=== PATIENT | female | born 1990 | race Caucasian/White ===

== ENCOUNTER → 2016-11-25 15:41 | Outpatient (CLI) | payer MEDICAID ==
[2016-06-22 05:56] VITALS: BMI 27.8
[~2016-11-25 15:41] MED LIST: IBUPROFEN600 MG PO; MOTRIN600 MG PO; PERCOCET 5-3251 TAB PO; PERCOCET 5/3251 TA1 OR; PHENERGAN25 M1 PO; PRENATAL COMPLE1 TAB PO
== END | disposition home or self-care (01) ==
LOC: D.US 15:30
DX: J06.9 Acute upper respiratory infection, unspecified (principal)

== ENCOUNTER → 2017-07-21 10:50 | Outpatient (CLI) | payer MEDICAID ==
[2016-06-22 05:56] VITALS: BMI 27.8
== END | disposition home or self-care (01) ==
LOC: D.US 10:50
DX: M79.605 Pain in left leg (principal); M79.604 Pain in right leg; I83.891 Varicose veins of right lower extremity with other complications

== ENCOUNTER 2017-10-28 05:37 | Day surgery (SDC) | payer MEDICAID ==
[2017-10-27 14:37] LABS: HEMATOCRIT 44.3 % (36.0-48.0); MCH 30.9 pg (26.0-34.0); MCHC 33.9 g/dL (31.0-37.0); MCV 91.3 fL (80.0-100.0); MEAN PLATELET VOLUME 10.7 fL (7.4-10.4); RBC 4.85 10x6/uL (4.00-5.40); WBC 9.7 10x3/uL (4.8-10.8)
[2017-10-27 14:41] LABS: INR 1.02 (0.85-1.17)
[~2017-10-28] VITALS: Ht 170.2 cm; Wt 63.0 kg
--- NOTE | ~2017-10-28 | OP ---
PATIENT NAME: KAMARI TATE MEDICAL RECORD: [id number] :90 LOCATION:D.OPS ADMISSION DATE: SURGEON: DUONG ENRIQUEZ MD DATE OF OPERATION: 10/28/2017 PREOPERATIVE DIAGNOSES: 1. Pathologic greater saphenous venous reflux, bilaterally. 2. Pathologic lesser saphenous venous reflux, bilaterally . 3. Bilateral symptomatic varicose veins. POSTOPERATIVE DIAGNOSES: 1. Pathologic greater saphenous venous reflux, bilaterally. 2. Pathologic lesser saphenous venous reflux, bilaterally. 3. Bilateral symptomatic varicose veins. PROCEDURES: 1. Bilateral VNUS radiofrequency ablation of the greater saphenous veins. The distance treated on the right was 70.5 cm and on the left 69.0 cm. 2. Bilateral VNUS radiofrequency ablation of the lesser saphenous veins. The distance treated on the left was 30.5 cm and on the right was 18.5 cm. 3. Bilateral lower extremity stab avulsion phlebectomies times 10. SURGEON: Duong Enriquez MD HELICOPTER SPECIALIST: None. BLOOD LOSS: Less than 50 cc. ANESTHESIA: General. COMPLICATIONS: None. The risks, possible complications, and alternatives to the procedure were explained to the patient. She elects to proceed. The patient received 80 mg of Lovenox subcutaneously during the operative procedure as she has had a history of DVTs and does have hypercoagulability. OPERATIVE COURSE: The patient was seen in the holding area. In the presence of a female nurse, while she was standing, I marked all of varicose veins. The patient confirmed that the varicose veins were marked in their entireties. The patient was then conveyed to the operating room. She was positioned supine. General anesthesia was induced by the anesthesia staff. The lower extremities and groins were sterilely prepped and draped. I first started on the left side. Under real time ultrasound, I percutaneously accessed the right greater saphenous vein at the level of the ankle. A micropuncture technique was used for this. I then changed out for a 7-[place] dilator sheath. The dilator wire were removed. The radiofrequency catheter was advanced. The patient was positioned in the Trendelenburg position. A radiofrequency catheter was advanced to the saphenofemoral junction and then withdrawn 2 cm into the greater saphenous vein. Utilizing a crystalloid solution and under ultrasonographic guidance, I injected a crystalloid around the vein to act as a heat sink to prevent damage in the surrounding structures such as nerves. I activated the radiofrequency catheter twice. With each 7 cm pullback, I activated the OPERATIVE REPORT [id number] KAMARI TATE radiofrequency catheter again. I ensured that there was a good bit of the crystalloid solution around the greater saphenous vein in the leg to prevent injury to the saphenous nerve. Endovascular hardware was removed. The puncture site was closed with a single 4-0 Vicryl Rapide suture. I then turned my attention to the left side. Under ultrasonographic guidance, I percutaneously accessed the left greater saphenous vein at the level of the ankle. Utilizing micropuncture technique, I changed out for a 7-[place] dilator sheath. The dilator wire were removed. Through the sheath, I advanced the radiofrequency catheter. The patient was then positioned in the Trendelenburg position. I advanced the radiofrequency catheter to the saphenofemoral junction. I then withdrew into the greater saphenous vein about 2 cm. Utilizing the same technique as on the right side, injected a crystalloid solution around the greater saphenous vein in order to act as a heat sink to prevent injury to surrounding structures. I activated the radiofrequency catheter twice. With each 7 cm pullback, I activated the radiofrequency catheter again. Endovascular hardware was removed. Puncture site was closed with a single 4-0 Vicryl Rapide suture. The wu over the varicose veins were easily identifiable. Small stab incisions were made and utilizing a phlebectomy hook, I performed avulsion phlebectomies. The patient was then positioned in the prone position. Both lower extremities were sterilely prepped and draped. On the patient's left side, under ultrasonographic guidance, I percutaneously accessed the left lesser saphenous vein. Utilizing micropuncture technique, a 7-[place] dilator sheath was advanced. The radiofrequency catheter was advanced. It was advanced to the saphenopopliteal junction. I then withdrew into the lesser saphenous vein about 2 cm. Utilizing a crystalloid solution, I injected the crystalloid solution around the lesser saphenous vein to act as a heat sink to prevent injury to surrounding structures. I activated the radiofrequency catheter twice. With each 7 cm pullback, I activated the radiofrequency catheter again. Endovascular hardware was removed. The puncture site was closed with a 4-0 Vicryl Rapide suture. Attention was then turned to the right side. Under ultrasonographic guidance, I percutaneously accessed the right lesser saphenous vein. A micropuncture technique was utilized and I changed out for a 7-[place] dilator sheath. The dilator wire were removed. Through the sheath, the radiofrequency catheter was advanced. Utilizing a crystalloid solution, I injected it under ultrasonographic guidance again into the perivenular tissues to prevent injury to the perivenular tissues. I activated the radiofrequency catheter twice. With each 7 cm pullback, I activated the radiofrequency catheter again. The endovascular hardware was removed. The puncture site was closed with a 4-0 Vicryl Rapide suture. There was only one varicose vein on the posterior leg and utilizing an avulsion phlebectomy technique, a small skin artur was accomplished. The patient was then positioned supine. Wraps consisting of 4 x 4s and Coban were then wrapped around both legs and the Coban was cut proximally and distally in order to prevent a pressure necrosis. The patient was then conveyed to post-anesthesia care unit. I saw the patient little bit later in the outpatient department. She was very anxious and having some pain. I tried to reassure her OPERATIVE REPORT [id number] KAMARI TATE that everything had gone well with the operative procedure. TRANSINT:[id number] Voice Confirmation ID: [id number] DOCUMENT ID: [id number] DUONG ENRIQUEZ MD at 0938 CC: [id number] DICTATION DATE: 10/29/17 1645 [employer] DRIVER: 10/30/17 0033 [facility] 10/28/[address] [id number]
[~2017-10-28 05:37] MED LIST changes: +BAYER CHEWABLE81 MG PO
[2017-10-28 09:11] VITALS: BP 106/52; Ht 170.2 cm; Wt 63.0 kg
== END 2017-10-28 18:05 | disposition home or self-care (01) ==
LOC: D.OPS 05:37 → D.PAN 09:40 → D.OPS 10:45
PROVIDERS: Anesthesiology
DX: I87.2 Venous insufficiency (chronic) (peripheral) (principal); I83.93 Asymptomatic varicose veins of bilateral lower extremities; F17.200 Nicotine dependence, unspecified, uncomplicated; Z01.812 Encounter for preprocedural laboratory examination

== ENCOUNTER → 2017-11-08 13:55 | Outpatient (CLI) | payer MEDICAID ==
[2017-10-28 09:11] VITALS: BMI 21.8
== END | disposition home or self-care (01) ==
LOC: D.US 13:55
DX: R22.43 Localized swelling, mass and lump, lower limb, bilateral (principal)